=== PATIENT | female | born 1965 | race African-American/Black ===

== ENCOUNTER → 2019-10-26 | Outpatient (CLI) | payer OTHER ==
[~2019-10-26] MED LIST: BIOTIN1 POW; CELEBREX 200MG200 MG PO; COMPLETE SENIOR1 TA1 PO; CYANOCOBAL1000 MCG/1 INJ; CYMBALTA 20MG20 MG PO; DILAUDID 2MG TAB2 MG PO; FISH OIL 1000MG1 CAP PO; LINSEED OIL 1 ML1 ML; MICARDIS HCT 121 TAB PO; MOTRIN 800800 MG/TAB PO; NORVASC2.5 MG PO; PERCOCET 325 MG1 TA2 PO; VITAMIN D 1001000 IU; ZYRTEC 10MG10 MG PO
== END ==
LOC: COL.RAD 10:30
DX: M67.814 Other specified disorders of tendon, left shoulder (principal)

== ENCOUNTER 2023-07-25 07:29 | Emergency (ER) | payer OTHER ==
[~2023-07-25] VITALS: Ht 157.5 cm; Wt 56.8 kg
[2023-07-25 07:45] VITALS: TEMP 98
[2023-07-25] MEDS ORDERED: LORazepam 0.5 MG TAB PO ONE ×2 (08:15→11:15)
[2023-07-25 08:31] LABS: BASO # 0.1 K/mm3 (0.0-0.2); EOS % 0.3 % (0.0-4.0); GRAN % 57.2 % (42.2-75.2); HEMATOCRIT 45.3 % (37.0-47.0); HEMOGLOBIN 15.5 g/dl (12.5-16.0); LYMPH # 0.8 K/mm3 (1.2-3.4); LYMPH % 24.5 % (20.0-51.0); MEAN CELL VOLUME 86 fl (80.0-100.0); MEAN CORPUSCULAR HEMOGLOBIN 30 pg (27-31); MEAN CORPUSCULAR HGB CONC 34 g/dl (33.0-37.0); MEAN PLATELET VOLUME 9.5 fl (7.4-10.4); MONO # 0.5 K/mm3 (0.1-0.6); MONO % 15.7 % (1.7-9.3); PLATELET COUNT 358 K/mm3 (130-400); RED BLOOD COUNT 5.25 M/mm3 (4.10-5.30); REDCELL DISTRIBUTION WIDTH-CV 14.1 % (11.5-14.5)
[2023-07-25 08:44] LABS: ALBUMIN 4.1 g/dL (3.5-5.0); CALCIUM 9.5 mg/dL (8.4-10.2); CREATININE, serum 0.77 mg/dL (0.57-1.11); TOTAL PROTEIN 7.8 g/dl (6.2-8.1)
[2023-07-25 09:20] LABS: URINE APPEARANCE CLEAR (CLEAR/HAZY); URINE BLOOD NEGATIVE (NEGATIVE); URINE COLOR YELLOW (YELLOW); URINE GLUCOSE NEGATIVE (NEGATIVE); URINE KETONE NEGATIVE (NEGATIVE); URINE NITRATE NEGATIVE (NEGATIVE); URINE PROTEIN(semi-quant) TRACE (NEGATIVE); URINE UROBILINOGEN 0.2 E.U/dL (0.2-1.0)
[2023-07-25 09:23] LABS: TRICYCLIC ANTIDEPRESS URINE NEGATIVE (NEGATIVE)
[2023-07-25 09:24] LABS: COLLECTION METHOD CLEAN CATCH
[2023-07-25] MEDS ORDERED: Ibuprofen 200 MG TAB PO ONE (13:30)
[2023-07-25 15:23] LABS: ALCOHOL(ethanol),MEDICAL < 10 mg/dL (0-10); SALICYLATE < 5.0 mg/dL (15.0-30.0)
[2023-07-25] MEDS ORDERED: Ondansetron 4 MG/2 ML VIAL IV ONE (18:30)
[2023-07-25] MEDS ORDERED: diazePAM 5 MG TAB PO ONE ×2 (18:45→21:15)
[2023-07-25] MEDS ORDERED: MICARDIS80 MG PO (20:12)
[2023-07-25] MEDS ORDERED: HCTZ 25MG TAB25 MG PO (20:14)
[2023-07-25] MEDS ORDERED: Telmisartan 80 MG **** subs to Losartan 100 MG PO SCH (21:00)
[2023-07-25] MEDS ORDERED: DULoxetine 20 MG CAP PO SCH (21:00)
[2023-07-25] MEDS ORDERED: Losartan 50 MG TAB PO SCH (21:00)
[2023-07-25] MEDS ORDERED: amLODIPine 5 MG TAB PO SCH (21:00)
[2023-07-25 23:07] VITALS: BP 160/68; PULSE 87
== END 2023-07-25 23:14 ==
LOC: COL.ER 07:29
PROVIDERS: Emergency Medicine; Family Medicine
DX: F10.129 Alcohol abuse with intoxication, unspecified (principal); R45.851 Suicidal ideations; Y90.6 Blood alcohol level of 120-199 mg/100 ml

== ENCOUNTER 2023-10-06 08:10 | Emergency (ER) | payer OTHER ==
[~2023-10-06] VITALS: Ht 157.5 cm; Wt 61.8 kg
[~2023-10-06 08:10] MED LIST changes: +HCTZ 25MG TAB25 MG PO; +MICARDIS80 MG PO
[2023-10-06 08:15] VITALS: TEMP 97.1
[2023-10-06] MEDS ORDERED: LR 1,000 ML IV ONE (08:30)
[2023-10-06] MEDS ORDERED: Ondansetron 4 MG/2 ML VIAL IV ONE (08:30)
[2023-10-06] MEDS ORDERED: Meclizine 25 MG TAB PO ONE (08:45)
[2023-10-06 08:52] LABS: BASO # 0.1 K/mm3 (0.0-0.2); BASO % 1.2 % (0.0-2.0); EOS % 0.7 % (0.0-4.0); GRAN # 3.1 K/mm3 (1.4-6.5); GRAN % 72.3 % (42.2-75.2); HEMATOCRIT 41.8 % (37.0-47.0); HEMOGLOBIN 13.5 g/dl (12.5-16.0); LYMPH # 0.8 K/mm3 (1.2-3.4); LYMPH % 17.3 % (20.0-51.0); MEAN CELL VOLUME 87 fl (80.0-100.0); MEAN CORPUSCULAR HEMOGLOBIN 28 pg (27-31); MEAN CORPUSCULAR HGB CONC 32 g/dl (33.0-37.0); MEAN PLATELET VOLUME 9.6 fl (7.4-10.4); MONO # 0.4 K/mm3 (0.1-0.6); MONO % 8.3 % (1.7-9.3); PLATELET COUNT 254 K/mm3 (130-400); RED BLOOD COUNT 4.83 M/mm3 (4.10-5.30); REDCELL DISTRIBUTION WIDTH-CV 12.3 % (11.5-14.5)
[2023-10-06 09:47] LABS: ALBUMIN 3.9 g/dL (3.5-5.0); CALCIUM 9.8 mg/dL (8.4-10.2); CREATININE, serum 0.8 mg/dL (0.57-1.11); POTASSIUM 3.7 mEq/L (3.5-4.5); TOTAL PROTEIN 6.7 g/dl (6.2-8.1)
[2023-10-06] MEDS ORDERED: BONINE25 MG PO (10:14)
[2023-10-06 10:18] LABS: C-REACTIVE PROTEIN 0.06 mg/dL (0.00-0.50)
[2023-10-06] MEDS ORDERED: ZOFRAN ODT4 MG PO (10:33)
[2023-10-06 10:35] VITALS: BP 131/81; PULSE 85
[2023-10-06 10:47] LABS: COLLECTION METHOD CLEAN CATCH
[2023-10-06 11:04] LABS: URINE APPEARANCE CLEAR (CLEAR/HAZY); URINE BLOOD NEGATIVE (NEGATIVE); URINE COLOR YELLOW (YELLOW); URINE GLUCOSE NEGATIVE (NEGATIVE); URINE KETONE NEGATIVE (NEGATIVE); URINE NITRATE NEGATIVE (NEGATIVE); URINE PROTEIN(semi-quant) 1+ (NEGATIVE)
== END 2023-10-06 10:35 | disposition home or self-care (01) ==
LOC: COL.ER 08:10
PROVIDERS: Family Medicine
DX: H83.2X9 Labyrinthine dysfunction, unspecified ear (principal); R11.2 Nausea with vomiting, unspecified
CPT/HCPCS: J2405; J7120